=== PATIENT | male | born 1985 | race Hispanic/Latino ===

== ENCOUNTER 2021-03-11 09:46 | Emergency (ER) | payer OTHER, SELFPAY ==
--- NOTE | ~2021-03-11 | XR_ITS ---
EXAMINATION: XR shoulder LT min 2V EXAM DATE: 03/11/2021 10:42 INDICATION: fall onto concrete this a.m.;lac mid Lt humerus. TECHNIQUE: The following left shoulder projections obtained: 2 frontal projections, Grashey, and scap ular Y view (4+ views). There is no prior study for comparison. FINDINGS: No evidence of left shoulder rotator cuff calcific tendinosis. Unremarkable left glenohu meral and acromioclavicular joints. There are no acute fractures or dislocations identified. There is some gas identified overlying the mid arm, probably location of patient's reported laceration. There are no radiopaque foreign bodies. IMPRESSION: No acute fractures identified. Reviewed, dictated and finalized at location B.
[2021-03-11 10:07] VITALS: BP 137/94; PULSE 110; RESP 17; TEMP 37.1; O2SAT 97
--- NOTE | 2021-03-11 10:19 | ED.WOUNDLAC ---
HPI - Wound/Laceration General Chief Complaint: Wound/Laceration Stated Complaint: arm lac Time Seen by Provider: 03/11/21 10:02 Source: patient Mode of arrival: ambulatory Limitations: no limitations History of Present Illness HPI narrative: Patient is a 36 year old male who presents with approximate 3 cm laceration to left upper arm. Bleeding controlled with dressing. He reports trip and fall on the concrete. Patient also complaining of left shoulder pain related to fall. Patient denies hitting head, LOC. He reports he is not up-to-date on tetanus. Patient denies significant medical history. Patient is Pakistani-speaking only diplomatic interpreter used during assessment. Related Data Home Medications Medication Instructions Recorded Confirmed No Home Medications 03/11/21 03/11/21 Allergies Allergy/AdvReac Type Severity Reaction Status Date / Time No Known Allergies Allergy Verified 03/11/21 10:11 Review of Systems Review of Systems: Narrative: CONSTITUTIONAL: Denies fever, chills, or sweats. EYES: Denies visual changes, redness, or discharge. ENT: Denies rhinorrhea, congestion, sore throat, or otalgia. CARDIOVASCULAR: Denies chest pain, palpitations, or edema. RESPIRATORY: Denies cough or dyspnea. GASTROINTESTINAL: Denies abdominal pain, nausea, vomiting, or diarrhea. GENITOURINARY: Denies dysuria or hematuria. SKIN: Laceration to left upper arm MUSCULOSKELETAL: Left shoulder pain NEUROLOGIC: Denies headache, numbness, dizziness, or weakness. PSYCHIATRIC: Denies anxiety or depression. [facility] Past Medical History Medical History (Updated 03/11/21 @ 11:27 by RAMONA Morfin) No significant past medical history Surgical History Surgical History (Updated 03/11/21 @ 10:22 by RAMONA Morfin) No significant past surgical history Family History Family History (Updated 03/11/21 @ 10:22 by RAMONA Morfin) Other No significant family history Social History Social History (Updated 03/11/21 @ 10:23 by RAMONA Morfin) Smoking status: Never smoker Alcohol intake: never Substance use: never Living arrangements: with family Occupation/Education: occupation Gender identity (if verbalized by the patient): Male Comments At the time of signature, I have reviewed and agree with nursing past medical, surgical, social, and family history unless otherwise noted. Please see nursing chart for further information. There is no relevant family history pertinent to the presenting complaint. Exam Narrative: Exam Narrative: GENERAL: Well-appearing, well-nourished, and in no acute distress. HEAD: Normocephalic, atraumatic. EYES: EOMI. No redness or drainage. Conjunctiva are normal. ENT: Mucous membranes pink and moist. CHEST: No respiratory distress. Clear to auscultation. HEART: Regular rate and rhythm. No murmur appreciated. Normal peripheral pulses. EXTREMITIES: Normal range of motion. No visible deformity left shoulder or upper arm. SKIN: Approximate 3 cm laceration to left upper arm. NEURO: No focal deficits. Alert and oriented x3. Gait steady. PSYCH: Normal affect. No signs of depression or anxiety. Course Vital Signs Vital signs: Vital Signs Temperature 37.1 C 03/11/21 10:07 Pulse Rate 110 H 03/11/21 10:07 Respiratory Rate 17 03/11/21 10:07 Blood Pressure 137/94 H 03/11/21 10:07 Pulse Oximetry 97 03/11/21 10:07 Temperature 37.1 C 03/11/21 10:07 Pulse Rate 78 03/11/21 12:00 Respiratory Rate 14 03/11/21 12:00 Blood Pressure 107/45 L 03/11/21 12:00 Pulse Oximetry 100 03/11/21 12:00 Reviewed. Patient has been instructed to follow-up with his PCP regarding his blood pressure. Procedures Laceration Laceration 1: Date: 03/11/21 Time: 11:23 Site: upper extremity Side (If applicable): left (upper arm) Size (cm): 5 Description: linear Depth: simple, single layer Local Anesthetic: lidoca
--- NOTE | 2021-03-11 10:37 | PC.NURSE ---
pt in xray at this time.
--- NOTE | 2021-03-11 11:08 | PC.NURSE ---
Report to shea wild at this time, he has assumed pt care, vss, pt a&ox4, pink, warm and dry, SKI INSTRUCTOR at bedside suturing pt.
[2021-03-11] MEDS: TETANUS,DIPHTHERIA,AC PERTUSSIS ADULT (0.5 ML) BOOSTRIX IM (11:38)
[2021-03-11 12:00] VITALS: BP 107/45; PULSE 78; RESP 14; O2SAT 100
== END 2021-03-11 11:59 | disposition home or self-care (01) ==
PROVIDERS: Emergency Provider Nurse Practitioner
DX: S41.112A Laceration without foreign body of left upper arm, initial encounter (principal); Z23 Encounter for immunization; R03.0 Elevated blood-pressure reading, without diagnosis of hypertension; W01.0XXA Fall on same level from slipping, tripping and stumbling without subsequent striking against object, initial encounter
CPT/HCPCS: 12032; 73030; 90471; 90715; 99284

== ENCOUNTER 2021-03-21 19:20 | Emergency (ER) | payer OTHER, SELFPAY ==
[2021-03-21 19:22] VITALS: BP 142/82; PULSE 82; RESP 16; TEMP 36.7; O2SAT 100
[2021-03-21 19:28] VITALS: BP 142/82; PULSE 84; RESP 16; TEMP 36.7; O2SAT 100
--- NOTE | 2021-03-21 21:07 | ED.GENADULT ---
HPI - General Adult General Chief complaint: Skin/Abscess/Foreign Body Stated complaint: Stitches removed Time Seen by Provider: 03/21/21 19:23 Source: patient Mode of arrival: ambulatory Limitations: language barrier History of Present Illness HPI narrative: Patient presents requesting suture removal from the left upper arm. He was evaluated here on 03/11/2021 after he sustained a fall and hit his left arm, landing on the concrete. Eleven sutures were placed at that time. Since his initial injury he has not had any fever, chills, nausea, vomiting, purulence from the affected area. He reports minimal pain in affected area. He is not diabetic. He was updated on his tetanus during his ER visit on 03/11/21. He has no additional complaints. Related Data Home Medications Medication Instructions Recorded Confirmed No Home Medications 03/11/21 03/11/21 Allergies Allergy/AdvReac Type Severity Reaction Status Date / Time No Known Allergies Allergy Verified 03/21/21 19:31 Review of Systems Review of Systems: Narrative: CONSTITUTIONAL: Denies fever, chills, or sweats. EYES: Denies visual changes, redness, or discharge. ENT: Denies rhinorrhea, congestion, sore throat, or otalgia. CARDIOVASCULAR: Denies chest pain, palpitations, or edema. RESPIRATORY: Denies cough or dyspnea. GASTROINTESTINAL: Denies abdominal pain, nausea, vomiting, or diarrhea. GENITOURINARY: Denies dysuria or hematuria. SKIN: Reports healing laceration to left upper arm. Denies rash or itching. MUSCULOSKELETAL: Denies back pain, joint pain, or myalgia. NEUROLOGIC: Denies headache, numbness, dizziness, or weakness. PSYCHIATRIC: Denies anxiety or depression. [facility] Past Medical History Medical History No significant past medical history Surgical History Surgical History No significant past surgical history Family History Family History Other No significant family history Social History Social History Smoking status: Never smoker Alcohol intake: never Substance use: never Gender identity (if verbalized by the patient): Male Exam Narrative: Exam Narrative: GENERAL: Well-appearing, well-nourished, and in no acute distress. HEAD: Normocephalic, atraumatic. EYES: PERRLA and EOMI. ENT: Nares clear, no rhinorrhea or epistaxis. Mucous membranes moist. Oropharynx without tonsillar hypertrophy exudate or other lesions. Bilateral TMs pearly giles nonbulging NECK: Supple. No adenopathy or masses. No carotid bruits or JVD CHEST: Clear to auscultation. No respiratory distress. No wheezes rales or rhonchi HEART: Regular rate and rhythm. No murmur heard. Normal peripheral pulses. ABDOMEN: Soft, nontender, nondistended, normal active bowel sounds. EXTREMITIES: Normal range of motion. No edema. SKIN: Approximately 5 cm linear laceration to the left upper arm which is approximated with 11 sutures which are all intact. There is a small amount of dried sanguinous drainage noted at the laceration site without any erythema or purulence. Warm, dry, no rash. NEURO: No focal deficits. Alert and oriented x3. PSYCH: Normal mood and affect. Course Course Emergency Course: This is a 36-year-old male who presented for suture removal after he was evaluated here on 03/11/2021 following a fall where he had 11 sutures placed at that time. He is up-to-date on tetanus. He has no evidence of infection. Sutures were removed and pt tolerated well. He was advised to follow up outpatient for further evaluation and treatment and return for worsening symptoms. Pt in agreement with plan of care. Vital Signs Vital signs: Vital Signs Temperature 36.7 C 03/21/21 19:22 Pulse Rate 82 03/21/21 19:22 Respiratory Rate 16 03/21/21 19
[2021-03-21 21:27] VITALS: BP 138/74; PULSE 82; RESP 20; O2SAT 100
== END 2021-03-21 21:29 | disposition home or self-care (01) ==
PROVIDERS: Emergency Provider Nurse Practitioner
DX: S41.112D Laceration without foreign body of left upper arm, subsequent encounter (principal); W19.XXXD Unspecified fall, subsequent encounter
CPT/HCPCS: 99281